=== PATIENT | female | born 1945 | race Caucasian/White ===

== ENCOUNTER 2021-08-02 17:19 | Inpatient (IN) | payer MEDICARE, OTHER ==
[~2021-08-02] VITALS: Ht 160 cm; Wt 48.1 kg
[2021-08-02 18:43] LABS: HEMOGLOBIN 10.9 gm/dl (12.3-15.3); RED BLOOD COUNT 4.33 M/UL (4.00-5.10); WHITE BLOOD COUNT 8.5 K/UL (4.5-11.0)
[2021-08-02 19:28] LABS: BUN/CREATININE RATIO 20 (0-10)
[2021-08-03 04:42] LABS: HEMOGLOBIN 8.4 gm/dl (12.3-15.3); RED BLOOD COUNT 3.33 M/UL (4.00-5.10); WHITE BLOOD COUNT 6.3 K/UL (4.5-11.0)
[2021-08-03] MEDS ORDERED: ATORVASTATIN CA80 MG PO (10:46)
[2021-08-03] MEDS ORDERED: COZAAR100 MG PO (10:46)
[2021-08-03] MEDS ORDERED: VITAMIN D21250 MCG PO (10:47)
[2021-08-03] MEDS ORDERED: CLOPIDOGREL75 MG PO (10:47)
[2021-08-03] MEDS ORDERED: OMEPRAZOLE40 MG PO (10:48)
[2021-08-03] MEDS ORDERED: METFORMIN HCL500 MG PO (10:48)
[2021-08-03] MEDS ORDERED: METOPROLOL TART25 MG PO (10:48)
[2021-08-03] MEDS ORDERED: AMLODIPINE BESYL5 MG PO (10:48)
[2021-08-03] MEDS ORDERED: ONDANSETRON HCL4 MG PO (10:49)
[2021-08-03] MEDS ORDERED: ASPIRIN EC81 MG PO (10:49)
[2021-08-03] MEDS ORDERED: LEVOFLOXACIN500 MG PO (10:50)
[2021-08-04 09:19] LABS: HEMOGLOBIN 9.6 gm/dl (12.3-15.3); RED BLOOD COUNT 3.82 M/UL (4.00-5.10); WHITE BLOOD COUNT 8.4 K/UL (4.5-11.0)
--- NOTE | 2021-08-04 16:56 | NUR ---
08/04/21 1605 RECEIVED TRANSFER FROM . IN COVID ISOLATION
[2021-08-05 07:06] LABS: HEMOGLOBIN 9.1 gm/dl (12.3-15.3); RED BLOOD COUNT 3.6 M/UL (4.00-5.10); WHITE BLOOD COUNT 8.4 K/UL (4.5-11.0)
[2021-08-06 04:33] LABS: HEMOGLOBIN 8.2 gm/dl (12.3-15.3); RED BLOOD COUNT 3.16 M/UL (4.00-5.10); WHITE BLOOD COUNT 5.1 K/UL (4.5-11.0)
[2021-08-06 04:48] LABS: BUN/CREATININE RATIO 34 (0-10)
[2021-08-07 03:45] LABS: BUN/CREATININE RATIO 31 (0-10)
[2021-08-08 03:22] LABS: RED BLOOD COUNT 3.38 M/UL (4.00-5.10); WHITE BLOOD COUNT 6.1 K/UL (4.5-11.0)
[2021-08-08 03:39] LABS: BUN/CREATININE RATIO 32 (0-10)
[2021-08-09 03:28] LABS: BUN/CREATININE RATIO 41 (0-10)
--- NOTE | 2021-08-09 11:02 | NUR ---
PTS PULSE OX IS 100% ON ROOM AIR
[2021-08-10 08:10] LABS: HEMOGLOBIN 8.6 gm/dl (12.3-15.3); RED BLOOD COUNT 3.37 M/UL (4.00-5.10)
[2021-08-10 08:11] LABS: BUN/CREATININE RATIO 40 (0-10); WHITE BLOOD COUNT 9.2 K/UL (4.5-11.0)
[2021-08-11 06:17] LABS: HEMOGLOBIN 8.5 gm/dl (12.3-15.3); RED BLOOD COUNT 3.3 M/UL (4.00-5.10); WHITE BLOOD COUNT 9.3 K/UL (4.5-11.0)
[2021-08-11 06:34] LABS: BUN/CREATININE RATIO 37 (0-10)
--- NOTE | 2021-08-11 08:49 | NUR ---
PER LAB, PATIENT BLOOD GLUCOSE WAS 53. SHE WAS EATING BREAKFAST. TALKED TO DR. KAUFFMAN, AND RECHECKED PATIENT. FSBS WAS 93. PATIENT ALERT AND ORIENTED THE WHOLE TIME, NO ISSUES. WILL CONTINUE TO CLOSELY MONITOR.
[2021-08-11] MEDS ORDERED: ELIQUIS 2.5 MG2.5 MG PO (11:40)
[2021-08-11] MEDS ORDERED: DEX4 GLUCOSE4 GM PO ×2 (11:40→11:49)
[2021-08-11] MEDS ORDERED: COLACE 100MG C100 MG PO (13:13)
[2021-08-11] MEDS ORDERED: MIRALAX17 GM PO (13:13)
[2021-08-12 04:48] LABS: HEMOGLOBIN 7.5 gm/dl (12.3-15.3)
[2021-08-12 05:05] LABS: BUN/CREATININE RATIO 40 (0-10)
[2021-08-12 05:23] LABS: RED BLOOD COUNT 2.91 M/UL (4.00-5.10); WHITE BLOOD COUNT 6.9 K/UL (4.5-11.0)
[2021-08-12 11:02] LABS: HEMOGLOBIN 8.5 gm/dl (12.3-15.3)
[2021-08-12] MEDS ORDERED: IPRAT-ALBUT 0.5-3 ML INH (14:53)
[2021-08-12] MEDS ORDERED: AMOX TR-K CLV1 EAC4 PO (14:53)
[2021-08-12] MEDS ORDERED: LEVOFLOXACIN750 MG PO (15:00)
== END 2021-08-12 23:08 | DRG 682 ==
LOC: ER1 17:19 → CDU 21:10 → M/S 21:10 → 3 EAST 08-03 21:23 → M/S 08-04 16:10
PROVIDERS: Internal Medicine; Physician Assistant; Physician Assistant Medical; ADMIT Internal Medicine
PROC: 8E0ZXY6 Isolation (ICD-10-PCS; principal; 2021-08-03)
PROC: 3E0333Z Introduction of Anti-inflammatory into Peripheral Vein, Percutaneous Approach (ICD-10-PCS; 2021-08-03)
DX: N17.9 Acute kidney failure, unspecified (principal); U07.1 COVID-19; J96.01 Acute respiratory failure with hypoxia; Z66 Do not resuscitate; J69.0 Pneumonitis due to inhalation of food and vomit; J12.82 Pneumonia due to coronavirus disease 2019; I69.354 Hemiplegia and hemiparesis following cerebral infarction affecting left non-dominant side; E87.0 Hyperosmolality and hypernatremia; K59.00 Constipation, unspecified; R47.9 Unspecified speech disturbances; R00.1 Bradycardia, unspecified; E11.649 Type 2 diabetes mellitus with hypoglycemia without coma; D64.9 Anemia, unspecified; F41.9 Anxiety disorder, unspecified; R53.81 Other malaise; I10 Essential (primary) hypertension; R62.7 Adult failure to thrive; E87.6 Hypokalemia; E11.65 Type 2 diabetes mellitus with hyperglycemia; E86.0 Dehydration; Z79.01 Long term (current) use of anticoagulants; Z86.711 Personal history of pulmonary embolism; Z74.01 Bed confinement status; Z79.82 Long term (current) use of aspirin; Z86.718 Personal history of other venous thrombosis and embolism; Z98.42 Cataract extraction status, left eye; Z98.41 Cataract extraction status, right eye; Z98.51 Tubal ligation status; Z82.49 Family history of ischemic heart disease and other diseases of the circulatory system
CPT/HCPCS: 36415; 36600; 70450; 71045; 74018; 80048; 80053; 82550; 82553; 82803; 82962; 83036; 83540; 83550; 83735; 83874; 84132; 84484; 85014; 85018; 85025; 85027; 93005; 94760; 96374; 96376; 97110-GP-CQ; 97161; 97530; 97530-GP-CQ; 99285; G0378; J0696; J1100; J2060; J3480; J7030; J7060; J7070; U0002